=== PATIENT | male | born 1945 | race Caucasian/White ===

== ENCOUNTER 2016-10-17 19:35 | Emergency (ER) | payer OTHER ==
[~2016-10-17] VITALS: Ht 180.3 cm; Wt 95.3 kg
[~2016-10-17 19:35] MED LIST: AMLODIPINE BESY10 MG PO; ASPIR LOW81 MG PO; ASPIRIN81 M1 PO; ATENOLOL100 M1 PO; ATENOLOL25 MG PO; BP MED PO; CALCIUM ACETAT667 MG PO; CARDIZEM CD240 M1 PO; CHOLESTROL MED; CIPRO500 MG PO; CIPROFLOXACIN500 MG PO; CLOPIDOGREL75 MG PO; COUMADIN; CYMBALTA60 MG PO; ELIQUIS2.5 M1 PO; ESOMEPRAZOLE MA40 M1 PO; FLAGYL500 MG PO; HYDRALAZINE HC100 MG PO; LISINOPRIL-HYDR1 TA1 PO; LISINOPRIL20 MG PO; MELOXICAM15 MG PO; NEXIUM; NEXIUM40 MG PO; NORCO 5-325 TA1 EACH PO; PEPCID40 MG PO; PLAVIX75 M1 PO; PRANDIN0.5 MG PO; PREDNISONE20 M1 PO; PROTONIX40 MG PO; VITAMIN D1000 IU PO; XARE20MG PO; ZOCOR20 MG PO; ZOFRAN4 MG PO
[2016-10-17 19:47] VITALS: BP 181/79
[2016-10-17] MEDS ORDERED: PREDNISONE10 MG PO (20:09)
[2016-10-17] MEDS ORDERED: LEVAQUIN750 M1 PO (20:09)
== END 2016-10-17 21:13 | disposition home or self-care (01) ==
LOC: ED 19:35
DX: J20.9 Acute bronchitis, unspecified (principal); F17.200 Nicotine dependence, unspecified, uncomplicated; Z88.1 Allergy status to other antibiotic agents; Z88.6 Allergy status to analgesic agent; Z79.82 Long term (current) use of aspirin

== ENCOUNTER → 2016-11-04 | Outpatient (CLI) | payer OTHER ==
[~2016-11-04] MED LIST changes: +LEVAQUIN750 M1 PO; +PREDNISONE10 MG PO
[2016-11-04 14:44] LABS: BILIRUBIN NEGATIVE (NEGATIVE); BLOOD NEGATIVE (NEGATIVE); CLARITY CLEAR (CLEAR); COLOR YELLOW (YELLOW); GLUCOSE 2+ (NEGATIVE); KETONE TRACE (NEGATIVE); LEUKO ESTERASE NEGATIVE (NEGATIVE); NITRITE NEGATIVE (NEGATIVE); PROTEIN 1+ (NEGATIVE); SPECIFIC GRAVITY >= 1.030 (1.005-1.030); UROBILINOGEN 0.2 E.U./dl (0.2-1.0)
[2016-11-04 14:50] LABS: BASO % 0.2 % (0.0-1.0); EOS # 0.1 10*3/uL (0.0-0.4); EOS % 1.7 % (1.0-4.0); HEMATOCRIT 42.6 % (42.0-52.0); HEMOGLOBIN 13.7 g/dl (14.0-18.0); IG # 0.1 10*3/uL (0.0-0.1); LYMPH # 1.6 10*3/uL (1.3-4.4); LYMPH % 19.2 % (27.0-41.0); MEAN CELL VOLUME 89.9 fl (80.0-94.0); MEAN CORPUSCULAR HGB 28.9 pg (27.0-31.0); MEAN CORPUSCULAR HGB CONC 32.2 g/dl (33.0-37.0); MEAN PLATELET VOLUME 10.6 fl (9.6-12.3); MONO # 0.7 10*3/uL (0.1-1.0); MONO % 8.7 % (3.0-9.0); NEUT # 5.8 10*3/uL (2.3-7.9); NEUT % 69.4 % (47.0-73.0); PLATELET COUNT AUTOMATED 182 10*3/uL (130-400); RED BLOOD COUNT 4.74 10*6/uL (4.50-5.90); RED CELL DISTRI WIDTH 12.8 % (0-14.5); WHITE BLOOD COUNT 8.3 10*3/uL (4.8-10.8)
[2016-11-04 15:08] LABS: ALBUMIN 3.3 gm/dl (3.1-4.5); BUN 26 mg/dl (7-24); CARBON DIOXIDE 31 mmol/L (21-32); CHLORIDE 102 mmol/L (98-107); EST GLOM FILT AFRICAN AMERICAN > 60 ml/min; GLUCOSE 246 mg/dL (65-99); PHOSPHOROUS 2.6 mg/dL (2.5-4.9); POTASSIUM 5.2 mmol/L (3.5-5.1); SODIUM 140 mmol/L (136-145)
[2016-11-04 15:16] LABS: URINE TP/CRE RATIO 0.1 (<0.21)
[2016-11-04 15:28] LABS: EPITHELIAL CELLS 0-2; MUCOUS 1+; WBC 0-2 wbc/hpf (0-5)
== END | disposition home or self-care (01) ==
LOC: LAB 14:02
PROVIDERS: Internal Medicine Nephrology
DX: N18.3 Chronic kidney disease, stage 3 (moderate) (principal)

== ENCOUNTER → 2017-06-07 | Outpatient (CLI) | payer OTHER | END | disposition home or self-care (01) | LOC: CARD 10:27 | DX: I35.1 Nonrheumatic aortic (valve) insufficiency (principal) ==

== ENCOUNTER → 2017-09-23 | Outpatient (CLI) | payer OTHER ==
[2017-09-23 12:15] LABS: BASO % 0.3 % (0.0-1.0); EOS # 0.2 10*3/uL (0.0-0.4); EOS % 3.3 % (1.0-4.0); HEMATOCRIT 38.5 % (42.0-52.0); HEMOGLOBIN 12.6 g/dl (14.0-18.0); LYMPH # 1.6 10*3/uL (1.3-4.4); LYMPH % 25.7 % (27.0-41.0); MEAN CELL VOLUME 86.1 fl (80.0-94.0); MEAN CORPUSCULAR HGB 28.2 pg (27.0-31.0); MEAN CORPUSCULAR HGB CONC 32.7 g/dl (33.0-37.0); MEAN PLATELET VOLUME 10.4 fl (9.6-12.3); MONO # 0.6 10*3/uL (0.1-1.0); NEUT # 3.8 10*3/uL (2.3-7.9); NEUT % 61.2 % (47.0-73.0); PLATELET COUNT AUTOMATED 203 10*3/uL (130-400); RED BLOOD COUNT 4.47 10*6/uL (4.50-5.90); WHITE BLOOD COUNT 6.1 10*3/uL (4.8-10.8)
[2017-09-23 12:44] LABS: ALBUMIN 3.5 gm/dl (3.1-4.5); BUN 25 mg/dl (7-24); CHLORIDE 104 mmol/L (98-107); CREATININE 1.33 mg/dL (0.70-1.30); PHOSPHOROUS 3.1 mg/dL (2.5-4.9); POTASSIUM 4.2 mmol/L (3.5-5.1); SODIUM 139 mmol/L (136-145)
[2017-09-23 12:56] LABS: BILIRUBIN NEGATIVE (NEGATIVE); BLOOD NEGATIVE (NEGATIVE); CLARITY CLEAR (CLEAR); COLOR YELLOW (YELLOW); GLUCOSE NEGATIVE (NEGATIVE); KETONE NEGATIVE (NEGATIVE); LEUKO ESTERASE NEGATIVE (NEGATIVE); NITRITE NEGATIVE (NEGATIVE); SPECIFIC GRAVITY >= 1.030 (1.005-1.030); UROBILINOGEN 0.2 E.U./dl (0.2-1.0)
[2017-09-23 13:08] LABS: MUCOUS TRACE
[2017-09-23 13:54] LABS: PTH INTACT 53.1 pg/mL (14.0-72.0); VITAMIN D, 25-HYDROXY 21.6 ng/mL (30-100)
== END | disposition home or self-care (01) ==
LOC: LAB 11:26
PROVIDERS: Internal Medicine Nephrology
DX: N18.3 Chronic kidney disease, stage 3 (moderate) (principal)

== ENCOUNTER → 2018-01-09 | Outpatient (CLI) | payer OTHER ==
[~2018-01-09] MED LIST changes: +GLUCOPHAGE1000 MG PO
== END | disposition home or self-care (01) ==
LOC: US 12:31
DX: N18.3 Chronic kidney disease, stage 3 (moderate) (principal); Z95.828 Presence of other vascular implants and grafts

== ENCOUNTER → 2018-01-15 | Outpatient (CLI) | payer OTHER ==
[2018-01-15 09:47] LABS: BILIRUBIN NEGATIVE (NEGATIVE); BLOOD NEGATIVE (NEGATIVE); CLARITY CLEAR (CLEAR); COLOR YELLOW (YELLOW); GLUCOSE 3+ (NEGATIVE); KETONE NEGATIVE (NEGATIVE); LEUKO ESTERASE NEGATIVE (NEGATIVE); NITRITE NEGATIVE (NEGATIVE); SPECIFIC GRAVITY 1.025 (1.005-1.030); UROBILINOGEN 0.2 E.U./dl (0.2-1.0)
[2018-01-15 09:53] LABS: BASO % 0.3 % (0.0-1.0); EOS # 0.1 10*3/uL (0.0-0.4); EOS % 2.1 % (1.0-4.0); HEMATOCRIT 39.6 % (42.0-52.0); HEMOGLOBIN 12.3 g/dl (14.0-18.0); LYMPH # 1.3 10*3/uL (1.3-4.4); LYMPH % 21.4 % (27.0-41.0); MEAN CELL VOLUME 90.2 fl (80.0-94.0); MEAN CORPUSCULAR HGB CONC 31.1 g/dl (33.0-37.0); MEAN PLATELET VOLUME 10.6 fl (9.6-12.3); MONO # 0.5 10*3/uL (0.1-1.0); MONO % 8.1 % (3.0-9.0); NEUT # 4.2 10*3/uL (2.3-7.9); NEUT % 67.5 % (47.0-73.0); PLATELET COUNT AUTOMATED 195 10*3/uL (130-400); RED BLOOD COUNT 4.39 10*6/uL (4.50-5.90); WHITE BLOOD COUNT 6.2 10*3/uL (4.8-10.8)
[2018-01-15 09:58] LABS: WBC 0-2 wbc/hpf (0-5)
[2018-01-15 10:21] LABS: ALBUMIN 3.7 gm/dl (3.1-4.5); BUN 27 mg/dl (7-24); CHLORIDE 102 mmol/L (98-107); CREATININE 1.28 mg/dL (0.70-1.30); PHOSPHOROUS 3.1 mg/dL (2.5-4.9); POTASSIUM 4.6 mmol/L (3.5-5.1); SODIUM 137 mmol/L (136-145)
== END | disposition home or self-care (01) ==
LOC: LAB 08:36
PROVIDERS: Internal Medicine Nephrology
DX: N18.3 Chronic kidney disease, stage 3 (moderate) (principal); R80.9 Proteinuria, unspecified

== ENCOUNTER → 2019-01-28 | Outpatient (CLI) | payer OTHER ==
[~2019-01-28] MED LIST changes: +PRAVACHOL20 MG PO; +ROPINIROLE HYDRO1 MG PO
[2019-01-28 10:19] LABS: INTERNATIONAL NORM RATIO 1.2 (2.0-3.5)
== END | disposition home or self-care (01) ==
LOC: LAB 09:12
PROVIDERS: Internal Medicine Cardiovascular Disease
DX: Z51.81 Encounter for therapeutic drug level monitoring (principal); Z79.01 Long term (current) use of anticoagulants

== ENCOUNTER → 2019-03-25 | Outpatient (CLI) | payer OTHER ==
[2019-03-25 15:38] LABS: INTERNATIONAL NORM RATIO 1.8 (2.0-3.5)
== END | disposition home or self-care (01) ==
LOC: LAB 14:59
PROVIDERS: Internal Medicine Cardiovascular Disease
DX: Z79.01 Long term (current) use of anticoagulants (principal)

== ENCOUNTER → 2019-05-27 | Outpatient (CLI) | payer OTHER | END | disposition home or self-care (01) | LOC: LAB 09:10 → CARD 09:30 | PROVIDERS: Internal Medicine Cardiovascular Disease | DX: I48.0 Paroxysmal atrial fibrillation (principal); Z79.01 Long term (current) use of anticoagulants ==

== ENCOUNTER 2019-11-26 02:23 | Emergency (ER) | payer OTHER ==
[~2019-11-26] VITALS: Ht 187.9 cm; Wt 120.2 kg
[2019-11-26 02:49] LABS: BASO % 0.5 % (0.0-1.0); EOS # 0.2 10*3/uL (0.0-0.4); EOS % 3.2 % (1.0-4.0); HEMATOCRIT 38.7 % (42.0-52.0); LYMPH # 1.2 10*3/uL (1.3-4.4); LYMPH % 18.9 % (27.0-41.0); MEAN CELL VOLUME 85.2 fl (80.0-94.0); MEAN CORPUSCULAR HGB 27.3 pg (27.0-31.0); MEAN PLATELET VOLUME 9.6 fl (9.6-12.3); MONO # 0.7 10*3/uL (0.1-1.0); MONO % 10.7 % (3.0-9.0); NEUT # 4.3 10*3/uL (2.3-7.9); NEUT % 66.2 % (47.0-73.0); PLATELET COUNT AUTOMATED 253 10*3/uL (130-400); RED BLOOD COUNT 4.54 10*6/uL (4.50-5.90); RED CELL DISTRI WIDTH 12.7 % (0-14.5); WHITE BLOOD COUNT 6.5 10*3/uL (4.8-10.8)
[2019-11-26 03:10] LABS: ALBUMIN 3.5 gm/dl (3.1-4.5); CREATININE 1.42 mg/dL (0.70-1.30); POTASSIUM 4.7 mmol/L (3.5-5.1); TOTAL PROTEIN 7.7 gm/dL (6.4-8.2)
[2019-11-26 03:13] LABS: TROPONIN I 2.46 ng/ml (<0.045)
[2019-11-26 05:10] VITALS: BP 185/96
== END 2019-11-26 05:15 | disposition short-term general hospital (02) ==
LOC: ED 02:23
PROVIDERS: Emergency Medicine
DX: I63.9 Cerebral infarction, unspecified (principal); I10 Essential (primary) hypertension; K21.9 Gastro-esophageal reflux disease without esophagitis; E11.9 Type 2 diabetes mellitus without complications; E78.5 Hyperlipidemia, unspecified; E78.00 Pure hypercholesterolemia, unspecified; M19.90 Unspecified osteoarthritis, unspecified site; F32.9 Major depressive disorder, single episode, unspecified; Z88.8 Allergy status to other drugs, medicaments and biological substances; Z79.899 Other long term (current) drug therapy; Z79.84 Long term (current) use of oral hypoglycemic drugs; Z79.82 Long term (current) use of aspirin; Z87.891 Personal history of nicotine dependence

== ENCOUNTER 2020-01-13 10:33 | Inpatient (IN) | payer OTHER ==
[~2020-01-13] VITALS: Ht 180.3 cm; Wt 89.8 kg
[2020-01-13 10:45] VITALS: BP 116/67
[2020-01-13 11:25] LABS: BASO % 0.4 % (0.0-1.0); EOS # 0.1 10*3/uL (0.0-0.4); EOS % 1.6 % (1.0-4.0); LYMPH # 0.6 10*3/uL (1.3-4.4); LYMPH % 12.9 % (27.0-41.0); MEAN CELL VOLUME 84.7 fl (80.0-94.0); MEAN CORPUSCULAR HGB 26.1 pg (27.0-31.0); MEAN CORPUSCULAR HGB CONC 30.8 g/dl (33.0-37.0); MEAN PLATELET VOLUME 9.2 fl (9.6-12.3); MONO # 0.6 10*3/uL (0.1-1.0); NEUT # 3.5 10*3/uL (2.3-7.9); NEUT % 72.3 % (47.0-73.0); PLATELET COUNT AUTOMATED 212 10*3/uL (130-400); RED BLOOD COUNT 4.25 10*6/uL (4.50-5.90); RED CELL DISTRI WIDTH 14.6 % (0-14.5); WHITE BLOOD COUNT 4.9 10*3/uL (4.8-10.8)
[2020-01-13 11:43] LABS: ALBUMIN 2.9 gm/dl (3.1-4.5); ALKALINE PHOSPHATASE 73 U/L (45-117); BUN 23 mg/dl (7-24); CHLORIDE 104 mmol/L (98-107); LIPASE 44 U/L (73-393); SGOT/AST 20 IU/L (3-35); SGPT/ALT 12 U/L (12-78); SODIUM 135 mmol/L (136-145); TOTAL PROTEIN 7.7 gm/dL (6.4-8.2)
[2020-01-13 11:52] LABS: TROPONIN I 0.209 ng/ml (<0.045)
[2020-01-13 12:12] LABS: ACT PARTIAL THROMBO TIME 27.7 SECONDS (20.0-32.1); INTERNATIONAL NORM RATIO 1.1 (2.0-3.5)
[2020-01-13 13:38] VITALS: BP 117/69
--- NOTE | 2020-01-13 13:38 | NUR ---
COVID TEST DONE, RIGHT NARES
--- NOTE | 2020-01-13 13:39 | NUR ---
SECOND EKG COMPLETED
--- NOTE | 2020-01-13 14:02 | NUR ---
CONSULT CALLED TO DR FARLEY ANSWRING [facility]
--- NOTE | 2020-01-13 14:06 | NUR ---
SPOKE WITH DR EASTON REGARDING NEW CONSULT. NO NEW ORDERS AT THIS TIME
[2020-01-13] MEDS ORDERED: ELIQUIS5 M1 PO (14:29)
[2020-01-13] MEDS ORDERED: HYDRALAZINE HYD50 MG PO (14:29)
[2020-01-13] MEDS ORDERED: IMDUR SA60 M1 PO (14:29)
[2020-01-13] MEDS ORDERED: IRON325 M1 PO (14:29)
[2020-01-13] MEDS ORDERED: ALBUTEROL2.5 MG/0.5 INH (14:30)
--- NOTE | 2020-01-13 14:30 | NUR ---
MED REC UP TO DATE WITH BHAVESHNGHIA BURDEN
--- NOTE | 2020-01-13 14:31 | NUR ---
ATTEPTING TO REACH DR GARCIA WITH CRITICAL TROPONIN RESULT
--- NOTE | 2020-01-13 14:42 | NUR ---
DR GARCIA CALLED BACK. GAVE HIM CRITICAL TROPONIN RESULTS . NO NEW ORDERS AT THIS TIME
[2020-01-13 15:00] VITALS: BP 122/84
--- NOTE | 2020-01-13 15:00 | NUR ---
The assessment has been completed. SARIKA NAYLOR Time: 1500 A 74 year old MALE admitted to under services of EPI GUTIÉRREZ DO. Pt. arrived via ambulatory from ER. Chief complaint: SENT FROM HOME SPEECH THERAPIST FOR LOW POX AND ELEVATED HEART RATE. C/O SOB X2 DAYS WITH INTERMITTENT CHEST PAIN. SARIKA NAYLOR
--- NOTE | 2020-01-13 15:30 | NUR ---
INCREASED O2 TO 6L POST ABG, SATS ON PULSE OX INCREASED TO 94%. RN IS AWARE.
--- NOTE | 2020-01-13 15:45 | NUR ---
MESSAGE LEFT WITH ANSWERING SERVICE REGARDING CARDIOLOGY CONSULT
[2020-01-13 15:46] LABS: ABG BASE EXCESS 1.5 mmol/L (-2.0-2.0); ARTERIAL BLOOD GAS PH 7.435 (7.35-7.45)
--- NOTE | 2020-01-13 15:55 | NUR ---
PER DR RAMIREZ TO D/C FLUIDS AT THIS TIME.
[2020-01-13 16:00] VITALS: BP 141/70
--- NOTE | 2020-01-13 17:33 | NUR ---
DR GARCIA NOTIFIED OF TROPONIN 0.283
[2020-01-13 20:52] VITALS: BP 117/77
--- NOTE | 2020-01-13 21:50 | NUR ---
PATIENT RESTING QUIETLY IN BED. O2 6L NC. PULSE OX 98%. VITAL SIGNS STABLE. GAVE PATIENT WIFES NUMBER PER REQUEST AND WENT OVER HOW TO DIAL OUT TO CALL HER. ALSO GAVE PATIENT BAG OF BELONGINGS THAT HIS DROPPED OFF. PATIENT HAS NO COMPLAINTS AT THIS TIME. WILL CONTINUE TO MONITOR.
[2020-01-14 00:11] VITALS: BP 111/67
[2020-01-14 06:26] LABS: BASO % 0.2 % (0.0-1.0); EOS # 0.1 10*3/uL (0.0-0.4); EOS % 2.2 % (1.0-4.0); HEMATOCRIT 36.5 % (42.0-52.0); LYMPH # 0.8 10*3/uL (1.3-4.4); LYMPH % 18.5 % (27.0-41.0); MEAN CELL VOLUME 85.5 fl (80.0-94.0); MEAN CORPUSCULAR HGB 26.2 pg (27.0-31.0); MEAN CORPUSCULAR HGB CONC 30.7 g/dl (33.0-37.0); MEAN PLATELET VOLUME 9.6 fl (9.6-12.3); MONO # 0.6 10*3/uL (0.1-1.0); MONO % 14.4 % (3.0-9.0); NEUT # 2.6 10*3/uL (2.3-7.9); PLATELET COUNT AUTOMATED 235 10*3/uL (130-400); RED BLOOD COUNT 4.27 10*6/uL (4.50-5.90); RED CELL DISTRI WIDTH 14.6 % (0-14.5); WHITE BLOOD COUNT 4.1 10*3/uL (4.8-10.8)
[2020-01-14 06:35] LABS: INTERNATIONAL NORM RATIO 1.1 (2.0-3.5)
[2020-01-14 06:46] LABS: ALBUMIN 2.8 gm/dl (3.1-4.5); BUN 20 mg/dl (7-24); CHLORIDE 102 mmol/L (98-107); POTASSIUM 3.8 mmol/L (3.5-5.1); SODIUM 135 mmol/L (136-145)
[2020-01-14 06:55] LABS: ALKALINE PHOSPHATASE 78 U/L (45-117); CHOLESTEROL 222 mg/dL (<200); CPK 32 U/L (39-308); CREATININE 1.26 mg/dL (0.70-1.30); HDL CHOLESTEROL 36 mg/dl (40-60); LDL CHOLESTEROL 132 mg/dL (9-159); SGOT/AST 19 IU/L (3-35); SGPT/ALT 11 U/L (12-78); TOTAL PROTEIN 7.6 gm/dL (6.4-8.2); TRIGLYCERIDES 269 mg/dl (<150); VLDL CHOLESTEROL 54 mg/dL (6-40)
[2020-01-14 08:00] VITALS: BP 133/89
--- NOTE | 2020-01-14 08:00 | NUR ---
PT RESTING IN BED. VOICES NO CONCERNS AT THIS TIME. RESPS EASY AND NON LABORED. NO S/S OF DISTRESS. VSS- SPO2 FOUND TO BE IN THE 80'S; TITRATED OXYGEN TO 7L AT THIS TIME. WHITE BOARD UPDATED. POC DISCUSSED W PT. I/E WHEEZES NOTED. PT DENIES SOB/CP/P. WILL CONTINUE TO MONITOR.
--- NOTE | 2020-01-14 09:00 | NUR ---
Half Sole Fitter in to talk to patient. Patient states lives at home with . There are 7 steps in the home. Physician: [place] [facility]: [facility] Patient's level of ADLs: MINIMAL ASSIST Patient has working utilities: all working DME: walker Follow-up physician's appointment after d/c: will be made by [facility] nurse director upon discharge Does patient want to access PORTAL?: no Discharge plan discussed with patient's , he lives at home with her, she stated he recently was in a [facility] with a CVA. he uses a walker for ambulation. stated they have steps in their home to the upstairs but patient doesn't have to use them, his bedroom is on the first floor. and also a bathroom, she stated he requires minimal assistance for adls. he has [facility] health currently that was set up per [facility], states patient will return home with her when discharged and she would like his [facility] continued case management will send resume order to [facility]. ALLAN BOOGIE
[2020-01-14 11:01] LABS: ABG BASE EXCESS 1.9 mmol/L (-2.0-2.0); ARTERIAL BLOOD GAS PH 7.422 (7.35-7.45)
--- NOTE | 2020-01-14 11:30 | NUR ---
BS 201. PT REFUSED INSULIN COVERAGE AT THIS TIME
--- NOTE | 2020-01-14 14:30 | NUR ---
PT. PLACED ON HIGH FLOW NC AT 10 LITERS, RN AWARE.
--- NOTE | 2020-01-14 16:59 | NUR ---
PT RESTING IN ROOM. RESPS EASY AND NON LABORED. VSS. SPO2 93% ON 10L HFNC. WHEEZES NOTED. DENIES SOB. WILL CONTINUE TO MONITOR. CALL LIGHT WITHIN REACH. A/O X3.
[2020-01-14 20:00] VITALS: BP 161/79
--- NOTE | 2020-01-14 23:30 | NUR ---
PATIENT SITTING ON SIDE OF BED. 10L HIGH FLOW NASAL CANNULA. PULSE OX IS 97%. NO COMPLAINTS AT THIS TIME. RESPIRATIONS ARE EASY, REGULAR, NONLABORED. NO SIGNS OR SYMPTOMS OF DISCOMFORT OR DISTRESS NOTED. PATIENT STATED NOT IN PAIN AND NOT SHORT OF BREATH. WILL CONTINUE TO MONITOR.
[2020-01-15] VITALS: BP 152/80
[2020-01-15 07:20] LABS: HEMATOCRIT 36.2 % (42.0-52.0); LYMPH # 0.5 10*3/uL (1.3-4.4); LYMPH % 11.7 % (27.0-41.0); MEAN CORPUSCULAR HGB 26.3 pg (27.0-31.0); MEAN CORPUSCULAR HGB CONC 30.9 g/dl (33.0-37.0); MEAN PLATELET VOLUME 9.5 fl (9.6-12.3); MONO # 0.2 10*3/uL (0.1-1.0); MONO % 4.4 % (3.0-9.0); NEUT # 3.2 10*3/uL (2.3-7.9); NEUT % 83.4 % (47.0-73.0); PLATELET COUNT AUTOMATED 242 10*3/uL (130-400); RED BLOOD COUNT 4.26 10*6/uL (4.50-5.90); RED CELL DISTRI WIDTH 14.3 % (0-14.5); WHITE BLOOD COUNT 3.8 10*3/uL (4.8-10.8)
[2020-01-15 07:21] LABS: HEMATOCRIT 35.9 % (42.0-52.0); LYMPH # 0.5 10*3/uL (1.3-4.4); LYMPH % 12.2 % (27.0-41.0); MEAN CELL VOLUME 83.9 fl (80.0-94.0); MEAN CORPUSCULAR HGB 25.9 pg (27.0-31.0); MEAN CORPUSCULAR HGB CONC 30.9 g/dl (33.0-37.0); MEAN PLATELET VOLUME 9.3 fl (9.6-12.3); MONO # 0.2 10*3/uL (0.1-1.0); MONO % 4.5 % (3.0-9.0); NEUT # 3.1 10*3/uL (2.3-7.9); NEUT % 82.5 % (47.0-73.0); PLATELET COUNT AUTOMATED 255 10*3/uL (130-400); RED BLOOD COUNT 4.28 10*6/uL (4.50-5.90); RED CELL DISTRI WIDTH 14.2 % (0-14.5); WHITE BLOOD COUNT 3.8 10*3/uL (4.8-10.8)
--- NOTE | 2020-01-15 07:44 | NUR ---
PT NEGATIVE FOR COVID-19
[2020-01-15 07:54] LABS: ALBUMIN 2.9 gm/dl (3.1-4.5); ALKALINE PHOSPHATASE 67 U/L (45-117); BUN 25 mg/dl (7-24); CHLORIDE 103 mmol/L (98-107); CPK 35 U/L (39-308); CREATININE 1.33 mg/dL (0.70-1.30); POTASSIUM 3.9 mmol/L (3.5-5.1); SGOT/AST 13 IU/L (3-35); SGPT/ALT 12 U/L (12-78); SODIUM 135 mmol/L (136-145); TOTAL PROTEIN 7.9 gm/dL (6.4-8.2)
[2020-01-15 08:00] VITALS: BP 138/76
--- NOTE | 2020-01-15 08:00 | NUR ---
PT RESTING IN BED.VOICES NO CONCERNS AT THIS TIME. RESPS EASY AND NON LABORED. NO S/S OF DISTRESS NOTED. VSS. WHITE BOARD UPDATED. POC DISCUSSED W PT. CALL LIGHT WITHIN REACH. A/O X3. WHEEZES NOTED. 10L HFNC-93%. SOB W EXERTION. WILL CONTINUE TO MONITOR.
[2020-01-15 08:01] LABS: TROPONIN I 0.123 ng/ml (<0.045)
--- NOTE | 2020-01-15 08:02 | NUR ---
DR RODRIGUEZ NOTIFIED OF CRITICAL TROPONIN OF 0.123
--- NOTE | 2020-01-15 09:49 | NUR ---
DR PHILIP INTO SEE PT
[2020-01-15 11:02] LABS: ABG BASE EXCESS 0.6 mmol/L (-2.0-2.0); ARTERIAL BLOOD GAS PH 7.433 (7.35-7.45)
--- NOTE | 2020-01-15 11:38 | NUR ---
PT TAKEN OFF FLOOR TO CT
[2020-01-15 12:00] VITALS: BP 138/76
--- NOTE | 2020-01-15 13:19 | NUR ---
INFORMED DR EASTON OF CT RESULTS. STATES HE WANTS PT MOVED TO ROOM 420.
--- NOTE | 2020-01-15 14:47 | NUR ---
PT SITTING UP IN CHAIR IN ROOM. RESPS EASY AND NON LABORED. NO S/S OF DISTRESS NOTED. 10L HFNC INTACT. SPO2 >93%. VOICES NO CONCERNS AT THIS TIME. WILL CONTINUE TO MONITOR.
[2020-01-15 16:00] VITALS: BP 138/76
--- NOTE | 2020-01-15 18:00 | NUR ---
PT EATING DINNER. VOICES NO CONCERNS. RESPS EASY AND NON LABORED. NO S/S OF DISTRESS. 10L HFNC INTACT-SPO2 94%. PT DENIES SOB @REST. NO CHEST DISCOMFORT. VSS. CALL LIGHT WITHIN REACH.
[2020-01-15 20:00] VITALS: BP 148/69
[2020-01-16] VITALS: BP 136/68
--- NOTE | 2020-01-16 00:04 | NUR ---
ASSISTED PATIENT WITH PROPER USE OF INHALER AT THIS TIME. PATIENT DID 4 PUFF PER ORDER. 97% ON 10L HIGH FLOW CANNULA. CALL LIGHT WITHIN REACH, WILL MONITOR
--- NOTE | 2020-01-16 02:41 | NUR ---
24 HR chart check completed.
[2020-01-16 07:03] LABS: HEMATOCRIT 32.4 % (42.0-52.0); LYMPH # 0.5 10*3/uL (1.3-4.4); LYMPH % 8.1 % (27.0-41.0); MEAN CELL VOLUME 85.7 fl (80.0-94.0); MEAN CORPUSCULAR HGB 26.2 pg (27.0-31.0); MEAN CORPUSCULAR HGB CONC 30.6 g/dl (33.0-37.0); MEAN PLATELET VOLUME 9.5 fl (9.6-12.3); MONO # 0.4 10*3/uL (0.1-1.0); MONO % 6.5 % (3.0-9.0); NEUT # 4.9 10*3/uL (2.3-7.9); NEUT % 84.5 % (47.0-73.0); PLATELET COUNT AUTOMATED 241 10*3/uL (130-400); RED BLOOD COUNT 3.78 10*6/uL (4.50-5.90); RED CELL DISTRI WIDTH 14.3 % (0-14.5); WHITE BLOOD COUNT 5.8 10*3/uL (4.8-10.8)
[2020-01-16 07:25] LABS: ALBUMIN 2.7 gm/dl (3.1-4.5); ALKALINE PHOSPHATASE 68 U/L (45-117); CHLORIDE 104 mmol/L (98-107); CPK 33 U/L (39-308); CREATININE 1.36 mg/dL (0.70-1.30); LDH 223 U/L (87-241); POTASSIUM 4.2 mmol/L (3.5-5.1); SGOT/AST 15 IU/L (3-35); SGPT/ALT 15 U/L (12-78); SODIUM 136 mmol/L (136-145)
[2020-01-16 07:34] LABS: BUN 38 mg/dl (7-24)
[2020-01-16 08:00] VITALS: BP 112/74
[2020-01-16 08:26] LABS: ARTERIAL BLOOD GAS PH 7.391 (7.35-7.45)
--- NOTE | 2020-01-16 09:29 | NUR ---
Dr. Foley in and reviewed pt condition updated on labs and vitals. States to decreased pt o2 to 8l and abgs in 2 hours past.
--- NOTE | 2020-01-16 09:34 | NUR ---
case management spoke to patient's regarding discharge plan. educated her on a short term usp and discussed with her patient discharging to a SNF upon discharge from the hospital, stated she did not want patient going to a SNF she was able to care for him at home with [facility], she stated patient has home oxygen at 5 liters and could have it increased to 10 liters if needed. case management will follow for any other home needs
[2020-01-16 12:00] VITALS: BP 123/58
[2020-01-16 12:08] LABS: ABG BASE EXCESS 1.5 mmol/L (-2.0-2.0); ARTERIAL BLOOD GAS PH 7.399 (7.35-7.45)
--- NOTE | 2020-01-16 12:45 | NUR ---
Notified Dr. Foley of ABG results. States to stick with 8l for now on pt.
[2020-01-16 16:51] VITALS: BP 128/57
--- NOTE | 2020-01-16 18:44 | NUR ---
Pt states he would like some antibiotic ointment for his nose. States he spoke with one of the physicans he saw today and he thought they were going to order it. States he has a sore spot in his nose. Notified Dr. Baker.
[2020-01-16 20:00] VITALS: BP 127/52
[2020-01-16 23:59] VITALS: BP 144/63
[2020-01-17 04:00] VITALS: BP 121/71
[2020-01-17 06:16] LABS: HEMATOCRIT 32.7 % (42.0-52.0); LYMPH # 0.4 10*3/uL (1.3-4.4); LYMPH % 8.9 % (27.0-41.0); MEAN CELL VOLUME 86.1 fl (80.0-94.0); MEAN CORPUSCULAR HGB 26.3 pg (27.0-31.0); MEAN CORPUSCULAR HGB CONC 30.6 g/dl (33.0-37.0); MEAN PLATELET VOLUME 9.9 fl (9.6-12.3); MONO # 0.1 10*3/uL (0.1-1.0); MONO % 2.8 % (3.0-9.0); NEUT # 4.3 10*3/uL (2.3-7.9); NEUT % 87.3 % (47.0-73.0); PLATELET COUNT AUTOMATED 242 10*3/uL (130-400); RED CELL DISTRI WIDTH 14.5 % (0-14.5)
[2020-01-17 06:39] LABS: ALBUMIN 2.7 gm/dl (3.1-4.5); ALKALINE PHOSPHATASE 63 U/L (45-117); BUN 44 mg/dl (7-24); CHLORIDE 103 mmol/L (98-107); CREATININE 1.31 mg/dL (0.70-1.30); POTASSIUM 4.9 mmol/L (3.5-5.1); SGOT/AST 16 IU/L (3-35); SGPT/ALT 15 U/L (12-78); SODIUM 135 mmol/L (136-145); TOTAL PROTEIN 6.9 gm/dL (6.4-8.2)
[2020-01-17 08:45] LABS: ABG BASE EXCESS -0.3 mmol/L (-2.0-2.0); ARTERIAL BLOOD GAS PH 7.377 (7.35-7.45)
--- NOTE | 2020-01-17 09:00 | NUR ---
per patient's , he will return home when discharge, patient not stable for discharge at this time, case management will follow
[2020-01-17 12:00] VITALS: BP 115/51
--- NOTE | 2020-01-17 12:46 | NUR ---
Pt called in states that her told her he was not having to use thickener in his liquids. states that pt was supposed to use thickener to nectar consistancy due to a recent stroke in October. States that he had the stroke in October and was in the hospital and did not come home until December. States that he was supposed to use the thickener at home as well but he did not. States she spoke with pt speech therapist and they stated pt probably needs a repeat MBS to eval ability to swallow. also wondering if not using thickener at home may have caused pneumonia. I notified her that I would tell the physican. Dr. Morley resident with ID called durint this conversation and I notified her of 's concerns and statements as recorded above.
--- NOTE | 2020-01-17 14:35 | NUR ---
Spoke with Dr. Foley. States that pt is to remain in isolation as prior. States that due to lung CT he cannot in good conscience dc isolation since it is highly suspicious. States a negative swab means covid was not isolated in the nose but it can still be in the lungs. States pt is to Remain is isolation until discharge.
--- NOTE | 2020-01-17 14:38 | NUR ---
Spoke with Dr. Baker regarding decision from Dr. Foley to keep pt in isolation due to CT scan. Also notified Dr. Baker of pt wifes statements earlier regarding hx of CVA with nectar thickened liquids which pt did not continue at home.
[2020-01-17 16:00] VITALS: BP 133/63
[2020-01-17 20:00] VITALS: BP 132/56
[2020-01-18] VITALS: BP 128/65
[2020-01-18 08:00] VITALS: BP 135/63
[2020-01-18 08:07] LABS: ABG BASE EXCESS 1.7 mmol/L (-2.0-2.0); ARTERIAL BLOOD GAS PH 7.407 (7.35-7.45)
[2020-01-18 08:12] LABS: BASO % 0.2 % (0.0-1.0); HEMATOCRIT 31.7 % (42.0-52.0); LYMPH # 0.5 10*3/uL (1.3-4.4); LYMPH % 8.4 % (27.0-41.0); MEAN CELL VOLUME 86.1 fl (80.0-94.0); MEAN CORPUSCULAR HGB 26.4 pg (27.0-31.0); MEAN CORPUSCULAR HGB CONC 30.6 g/dl (33.0-37.0); MEAN PLATELET VOLUME 10.3 fl (9.6-12.3); MONO # 0.3 10*3/uL (0.1-1.0); MONO % 5.4 % (3.0-9.0); NEUT # 4.7 10*3/uL (2.3-7.9); NEUT % 84.4 % (47.0-73.0); PLATELET COUNT AUTOMATED 252 10*3/uL (130-400); RED BLOOD COUNT 3.68 10*6/uL (4.50-5.90); RED CELL DISTRI WIDTH 14.4 % (0-14.5); WHITE BLOOD COUNT 5.6 10*3/uL (4.8-10.8)
[2020-01-18 08:23] LABS: ALBUMIN 2.6 gm/dl (3.1-4.5); ALKALINE PHOSPHATASE 60 U/L (45-117); BUN 38 mg/dl (7-24); CHLORIDE 105 mmol/L (98-107); CREATININE 1.19 mg/dL (0.70-1.30); SGOT/AST 10 IU/L (3-35); SGPT/ALT 16 U/L (12-78); SODIUM 137 mmol/L (136-145); TOTAL PROTEIN 6.3 gm/dL (6.4-8.2)
[2020-01-18 11:52] LABS: ABG BASE EXCESS 2.6 mmol/L (-2.0-2.0); ARTERIAL BLOOD GAS PH 7.431 (7.35-7.45)
[2020-01-18 12:00] VITALS: BP 112/52
[2020-01-18 20:00] VITALS: BP 108/68; BP 124/63
--- NOTE | 2020-01-18 20:00 | NUR ---
IN TO ASSESS PATIENT. PATIENT UP AMBULATING IN ROOM. NO DISTRESS NOTED. PATIENT ON 6L HFNC TOLERATING WELL. STATES HE FEELS MUCH BETTER. PATIENT HAS NO COMPLAINTS AT THIS TIME. CALL LIGHT WITHIN REACH, WILL MONITOR
--- NOTE | 2020-01-18 22:34 | NUR ---
24 HR chart check completed.
[2020-01-19] VITALS: BP 130/61
--- NOTE | 2020-01-19 02:05 | NUR ---
PATIENT SLEEPING. NO DIDSTRESS NOTED PULSE OX 98% ON CONTINUOUS MONITOR. CALL LIGHT WITHIN REACH
[2020-01-19 06:03] LABS: BASO % 0.2 % (0.0-1.0); HEMATOCRIT 33.2 % (42.0-52.0); LYMPH # 0.6 10*3/uL (1.3-4.4); LYMPH % 10.1 % (27.0-41.0); MEAN CELL VOLUME 85.6 fl (80.0-94.0); MEAN CORPUSCULAR HGB 26.3 pg (27.0-31.0); MEAN CORPUSCULAR HGB CONC 30.7 g/dl (33.0-37.0); MEAN PLATELET VOLUME 10.2 fl (9.6-12.3); MONO # 0.3 10*3/uL (0.1-1.0); MONO % 5.3 % (3.0-9.0); NEUT # 5.1 10*3/uL (2.3-7.9); NEUT % 82.3 % (47.0-73.0); PLATELET COUNT AUTOMATED 262 10*3/uL (130-400); RED BLOOD COUNT 3.88 10*6/uL (4.50-5.90); RED CELL DISTRI WIDTH 14.6 % (0-14.5); WHITE BLOOD COUNT 6.2 10*3/uL (4.8-10.8)
[2020-01-19 06:10] LABS: ALBUMIN 2.6 gm/dl (3.1-4.5); ALKALINE PHOSPHATASE 57 U/L (45-117); BUN 36 mg/dl (7-24); CHLORIDE 102 mmol/L (98-107); CREATININE 1.23 mg/dL (0.70-1.30); LDH 205 U/L (87-241); POTASSIUM 4.8 mmol/L (3.5-5.1); SGOT/AST 15 IU/L (3-35); SGPT/ALT 18 U/L (12-78); SODIUM 134 mmol/L (136-145); TOTAL PROTEIN 6.3 gm/dL (6.4-8.2)
[2020-01-19 08:00] VITALS: BP 144/70
[2020-01-19 08:31] LABS: ABG BASE EXCESS 2.6 mmol/L (-2.0-2.0); ARTERIAL BLOOD GAS PH 7.425 (7.35-7.45)
[2020-01-19 12:00] VITALS: BP 130/66
--- NOTE | 2020-01-19 14:15 | NUR ---
DROPPED TO 4LNC HF PER ORDERS. POX NOW 95%. RT ARI INFORMED OF ORDERS FOR REPEAT ABG IN 1-2HRS FROM THIS TIME.
--- NOTE | 2020-01-19 15:30 | NUR ---
PATIENT AMBULATED IN ROOM WITH 4 L/M CANNULA. PULSE OX 92%-93% WITH AMBULATION. PATIENT APPEARED TO TOLERATE WELL.
[2020-01-19 15:48] LABS: ABG BASE EXCESS 2.1 mmol/L (-2.0-2.0); ARTERIAL BLOOD GAS PH 7.414 (7.35-7.45)
[2020-01-19 16:00] VITALS: BP 121/57
[2020-01-19 20:00] VITALS: BP 129/57
--- NOTE | 2020-01-19 20:45 | NUR ---
IN TO ASSESS PATIENT. PATIENT ON 4L HFNC AND TOLERATING WELL. STATES HE FEELS PRETTY GOOD AND CAN'T WAIT TO GO HOME. BREATHING IS EASY AND REGULAR. NO DISTRESS. PATIENT DENIES ANY NEEDS ATT HIS TIME. CALL LIGHT WITHIN REACH, WILL MONITOR
[2020-01-20] VITALS: BP 134/67
--- NOTE | 2020-01-20 01:00 | NUR ---
PATIENT CONTINUES TO SLEEP. NO DISTRESS NOTED. PULSE OX 97% ON 4L HFNC. CALL LIGHT WITHIN REACH, WILL MONITOR
--- NOTE | 2020-01-20 04:00 | NUR ---
PATIENT CONTINUES TO SLEEP. 4LHFNC INTACT. PULSE OX 95%. CALL LIGHT WITHIN REACH, WILL MONITOR
[2020-01-20 05:14] LABS: ACT PARTIAL THROMBO TIME 30.7 SECONDS (20.0-32.1)
[2020-01-20 05:17] LABS: ALBUMIN 2.6 gm/dl (3.1-4.5); ALKALINE PHOSPHATASE 53 U/L (45-117); BUN 39 mg/dl (7-24); CHLORIDE 103 mmol/L (98-107); CREATININE 1.23 mg/dL (0.70-1.30); LDH 176 U/L (87-241); POTASSIUM 4.7 mmol/L (3.5-5.1); SGOT/AST 15 IU/L (3-35); SGPT/ALT 21 U/L (12-78); SODIUM 135 mmol/L (136-145); TOTAL PROTEIN 6.2 gm/dL (6.4-8.2)
[2020-01-20 06:23] LABS: HEMATOCRIT 33.3 % (42.0-52.0); MEAN CELL VOLUME 84.7 fl (80.0-94.0); MEAN CORPUSCULAR HGB CONC 30.6 g/dl (33.0-37.0); MEAN PLATELET VOLUME 10.3 fl (9.6-12.3); PLATELET COUNT AUTOMATED 254 10*3/uL (130-400); RED BLOOD COUNT 3.93 10*6/uL (4.50-5.90); RED CELL DISTRI WIDTH 14.5 % (0-14.5); WHITE BLOOD COUNT 6.8 10*3/uL (4.8-10.8)
--- NOTE | 2020-01-20 06:27 | NUR ---
BLOOD SUGAR TAKEN FROM BMP
[2020-01-20 07:08] LABS: OVALOCYTES FEW; PLATELET SUFFICIENCY NORMAL (NORMAL); TOTAL CELLS COUNTED 100 #CELLS
[2020-01-20 08:00] VITALS: BP 125/56
[2020-01-20 09:05] LABS: ABG BASE EXCESS 3.3 mmol/L (-2.0-2.0); ARTERIAL BLOOD GAS PH 7.421 (7.35-7.45)
--- NOTE | 2020-01-20 09:35 | NUR ---
PER , PT IS OK FOR DISCHARGE. WANTS PT TO SELF QUARANTINE AND DO A REPEAT COVID TEST IN 2 WEEKS AND THEN FOLLOW UP WITH HIM AT HIS OFFICE. ALSO WANTS PT TO BE DISCHARGED ON PREDNISONE TAPER FOR HIS COPD.
--- NOTE | 2020-01-20 10:30 | NUR ---
case management talks with patient's , she states he will return home when discharged and [facility], case management will follow
[2020-01-20 12:00] VITALS: BP 116/49
--- NOTE | 2020-01-20 14:28 | NUR ---
case management contacted [facility], notified they patient is being discharged to home today, faxed discharge list to them
[2020-01-20] MEDS ORDERED: LASIX40 MG PO (15:16)
[2020-01-20] MEDS ORDERED: PREDNISONE10 MG PO (15:16)
[2020-01-20] MEDS ORDERED: METOPROLOL SUCC25 M2 PO (15:16)
[2020-01-20] MEDS ORDERED: ATORVASTATIN CA40 M1 PO (15:16)
--- NOTE | 2020-01-20 15:44 | NUR ---
Discharge instructions reviewed with patient/family. Patient receptive and verbalizes understanding. Follow-up care arranged. Written instructions given to patient/family. CARLA TALBOT
--- NOTE | 2020-01-20 17:16 | NUR ---
12:30 PT ASSESSED FOR HOME O2. PT CURRENTLY HAS HOME O2 AT 3 L NC. PT AMBULATED IN ROOM WITH 3 L NC. SPO2 DROPPED TO 88%. PT AMBULATED ON 4 L NC. SPO2 MAINTAINED AT 91% PT REQUIRES 4 L NC WITH AMBULATION.
== END 2020-01-20 15:44 | disposition home health service (06) | DRG 871 ==
LOC: ED 10:33 → 4E 13:10 → EDHOLD 13:10 → 4E 13:25
PROVIDERS: Emergency Medicine; Internal Medicine; Internal Medicine Critical Care Medicine; Student in an Organized Health Care Education/Training Program; ADMIT Student in an Organized Health Care Education/Training Program
DX: A41.9 Sepsis, unspecified organism (principal); I21.A1 Myocardial infarction type 2; J96.21 Acute and chronic respiratory failure with hypoxia; J12.89 Other viral pneumonia; E87.1 Hypo-osmolality and hyponatremia; E44.0 Moderate protein-calorie malnutrition; J44.0 Chronic obstructive pulmonary disease with (acute) lower respiratory infection; J44.1 Chronic obstructive pulmonary disease with (acute) exacerbation; D68.59 Other primary thrombophilia; I24.9 Acute ischemic heart disease, unspecified; R65.20 Severe sepsis without septic shock; Z20.828 Contact with and (suspected) exposure to other viral communicable diseases; Z99.81 Dependence on supplemental oxygen; R79.89 Other specified abnormal findings of blood chemistry; L29.9 Pruritus, unspecified; K21.9 Gastro-esophageal reflux disease without esophagitis; E55.9 Vitamin D deficiency, unspecified; E11.51 Type 2 diabetes mellitus with diabetic peripheral angiopathy without gangrene; E11.22 Type 2 diabetes mellitus with diabetic chronic kidney disease; N18.3 Chronic kidney disease, stage 3 (moderate); M19.90 Unspecified osteoarthritis, unspecified site; E11.65 Type 2 diabetes mellitus with hyperglycemia; T38.0X5A Adverse effect of glucocorticoids and synthetic analogues, initial encounter; E78.5 Hyperlipidemia, unspecified; I12.9 Hypertensive chronic kidney disease with stage 1 through stage 4 chronic kidney disease, or unspecified chronic kidney disease; Z79.82 Long term (current) use of aspirin; Y92.89 Other specified places as the place of occurrence of the external cause; Z88.1 Allergy status to other antibiotic agents; Z88.5 Allergy status to narcotic agent; Z68.27 Body mass index [BMI] 27.0-27.9, adult

== ENCOUNTER → 2020-12-31 | Outpatient (CLI) | payer OTHER ==
[~2020-12-31] MED LIST changes: +ALBUTEROL2.5 MG/0.5 INH; +ATORVASTATIN CA40 M1 PO; +ELIQUIS5 M1 PO; +HYDRALAZINE HYD50 MG PO; +IMDUR SA60 M1 PO; +IRON325 M1 PO; +LASIX40 MG PO; +METOPROLOL SUCC25 M2 PO
== END | disposition home or self-care (01) ==
LOC: RAD 10:47
PROVIDERS: ATTEND Internal Medicine
DX: M17.0 Bilateral primary osteoarthritis of knee (principal)

== ENCOUNTER → 2021-05-14 | Outpatient (CLI) | payer OTHER | END | disposition home or self-care (01) | LOC: COVID19 15:51 | PROVIDERS: ATTEND Podiatrist Foot & Ankle Surgery | DX: Z11.52 Encounter for screening for COVID-19 (principal) ==

== ENCOUNTER → 2023-05-10 | Outpatient (CLI) | payer OTHER | END | disposition home or self-care (01) | LOC: US 14:12 | PROVIDERS: ATTEND Nurse Practitioner Family | DX: M17.12 Unilateral primary osteoarthritis, left knee (principal); M79.662 Pain in left lower leg ==

== ENCOUNTER 2024-06-14 07:22 | Emergency (ER) | payer MEDICARE, OTHER ==
[~2024-06-14] VITALS: Ht 180.3 cm; Wt 88.5 kg
[~2024-06-14 07:22] MED LIST changes: +IMDUR SA30 MG PO; -IMDUR SA60 M1 PO
[2024-06-14 07:31] VITALS: BP 172/93
[2024-06-14] MEDS ORDERED: fentaNYL CITRATE/PF 50 MCG/ML SYRINGE IV ONE (07:35)
[2024-06-14] MEDS ORDERED: Ondansetron Hydrochloride 4 MG/2 ML VIAL IV ONE (07:35)
[2024-06-14] MEDS ORDERED: SODIUM CHLORIDE 0.9% 1,000 ML IV ONE ×3 (07:35→09:04)
[2024-06-14 08:00] LABS: BASO % 0.1 % (0.0-1.0); EOS # 0.1 10*3/uL (0.0-0.4); EOS % 1.5 % (1.0-4.0); HEMATOCRIT 40.7 % (42.0-52.0); MEAN CELL VOLUME 83.7 fl (80.0-94.0); MEAN CORPUSCULAR HGB 27.8 pg (27.0-31.0); MEAN CORPUSCULAR HGB CONC 33.2 g/dl (33.0-37.0); MEAN PLATELET VOLUME 10.1 fl (9.6-12.3); MONO # 0.8 10*3/uL (0.1-1.0); MONO % 10.1 % (3.0-9.0); NEUT # 5.9 10*3/uL (2.3-7.9); PLATELET COUNT AUTOMATED 162 10*3/uL (130-400); RED BLOOD COUNT 4.86 10*6/uL (4.50-5.90); RED CELL DISTRI WIDTH 12.8 % (0-14.5)
[2024-06-14] MEDS ORDERED: XARELTO20 M1 PO (08:13)
[2024-06-14] MEDS ORDERED: LEVOTHYROXINE100 MC1 PO (08:16)
[2024-06-14] MEDS ORDERED: VITAMIN B121000 MC3 PO (08:17)
[2024-06-14] MEDS ORDERED: ROPINIROLE HYD0.5 MG PO (08:19)
[2024-06-14] MEDS ORDERED: CHLORTHALIDONE50 MG PO (08:19)
[2024-06-14 08:21] LABS: POTASSIUM 3.6 mmol/L (3.4-5.1)
[2024-06-14] MEDS ORDERED: PROTONIX TR40 MG PO (08:21)
[2024-06-14] MEDS ORDERED: VITAMIN D3125 MCG PO (08:21)
[2024-06-14] MEDS ORDERED: FENOFIBRATE145 M1 PO (08:22)
[2024-06-14] MEDS ORDERED: CETIRIZINE10 MG PO (08:22)
[2024-06-14] MEDS ORDERED: Piperacillin Sodium/Tazobact 50 ML IV ONE (08:40)
[2024-06-14] MEDS ORDERED: AMOX-CLAV 875-1 EACH PO (08:52)
== END 2024-06-14 09:43 | disposition home or self-care (01) ==
LOC: ED 07:22
PROVIDERS: Emergency Medicine
DX: J02.0 Streptococcal pharyngitis (principal); Z20.822 Contact with and (suspected) exposure to COVID-19; M79.10 Myalgia, unspecified site; N17.9 Acute kidney failure, unspecified; E78.5 Hyperlipidemia, unspecified; E11.22 Type 2 diabetes mellitus with diabetic chronic kidney disease; I12.9 Hypertensive chronic kidney disease with stage 1 through stage 4 chronic kidney disease, or unspecified chronic kidney disease; N18.9 Chronic kidney disease, unspecified; I25.10 Atherosclerotic heart disease of native coronary artery without angina pectoris; J44.9 Chronic obstructive pulmonary disease, unspecified; K21.9 Gastro-esophageal reflux disease without esophagitis; F32.A Depression, unspecified; F17.200 Nicotine dependence, unspecified, uncomplicated; Z88.1 Allergy status to other antibiotic agents; Z88.5 Allergy status to narcotic agent; Z88.8 Allergy status to other drugs, medicaments and biological substances; Z98.890 Other specified postprocedural states

== ENCOUNTER 2025-02-23 20:49 | Emergency (ER) | payer OTHER ==
[~2025-02-23 20:49] MED LIST changes: +AMOX-CLAV 875-1 EACH PO; +ATORVASTATIN CA80 M1 PO; +AUGMENTIN 500500 M1 PO; +CETIRIZINE10 MG PO; +CHLORTHALIDONE50 MG PO; +FAMOTIDINE20 M1 PO; +FENOFIBRATE145 M1 PO; +HUMALOG100 UNIT/2 SC; +INSULIN LI100 UNIT/2 SQ; +LANTUS SOL100 UNIT/1 SC; +LEVOTHYROXINE100 MC1 PO; +METOPROLOL SUCC50 M1 PO; +POTASSIUM CHLO20 ME4 PO; +PROTONIX TR40 MG PO; +ROPINIROLE HYD0.5 MG PO; +VITAMIN B121000 MC3 PO; +VITAMIN D3125 MCG PO; +XARELTO20 M1 PO
[2025-02-23] MEDS ORDERED: Ondansetron Hydrochloride 4 MG/2 ML VIAL IV ONE (20:55)
[2025-02-23 21:06] LABS: BASO # 0.0 10*3/uL (0.0-0.1); BASO % 0.4 % (0.0-1.0); EOS # 0.2 10*3/uL (0.0-0.4); EOS % 3.1 % (1.0-4.0); MEAN CELL VOLUME 86.7 fl (80.0-94.0); MEAN CORPUSCULAR HGB 27.7 pg (27.0-31.0); MEAN PLATELET VOLUME 9.6 fl (9.6-12.3); MONO # 0.5 10*3/uL (0.1-1.0); MONO % 10.1 % (3.0-9.0); NEUT # 2.9 10*3/uL (2.3-7.9); NEUT % 54.7 % (47.0-73.0); NUCLEATED RED BLOOD CELL 0.0 % (0.0-0.0); NUCLEATED RED BLOOD CELL 0.0 10*3/uL (0.0-0.0); PLATELET COUNT AUTOMATED 224 10*3/uL (130-400); RED CELL DISTRI WIDTH 13.1 % (0-14.5)
[2025-02-23 21:32] LABS: BUN 32.0 mg/dl (9-23); SGPT/ALT 9.0 U/L (5-49)
[2025-02-24] MEDS ORDERED: SODIUM CHLORIDE 0.9% 1,000 ML IV ONE (00:45)
[2025-02-24] MEDS ORDERED: INSULIN REGULAR, HUMAN 1 UNIT/0.01 ML IV ONE (02:40)
[2025-02-24] MEDS ORDERED: SODIUM CHLORIDE 0.9% 500 ML IV ONE (02:40)
[2025-02-24 04:51] VITALS: BP 117/64
[2025-02-24] MEDS ORDERED: Ondansetron4 MG PO (06:27)
== END 2025-02-24 06:33 | disposition home or self-care (01) ==
LOC: ED 20:49
PROVIDERS: Internal Medicine
DX: B34.9 Viral infection, unspecified (principal); E11.65 Type 2 diabetes mellitus with hyperglycemia; I12.9 Hypertensive chronic kidney disease with stage 1 through stage 4 chronic kidney disease, or unspecified chronic kidney disease; E11.22 Type 2 diabetes mellitus with diabetic chronic kidney disease; N18.32 Chronic kidney disease, stage 3b; R29.810 Facial weakness; H53.8 Other visual disturbances; I25.10 Atherosclerotic heart disease of native coronary artery without angina pectoris; J44.9 Chronic obstructive pulmonary disease, unspecified; K21.9 Gastro-esophageal reflux disease without esophagitis; F32.A Depression, unspecified; F12.90 Cannabis use, unspecified, uncomplicated; Z88.5 Allergy status to narcotic agent; Z88.8 Allergy status to other drugs, medicaments and biological substances; Z98.890 Other specified postprocedural states; Z89.022 Acquired absence of left finger(s); Z87.891 Personal history of nicotine dependence

== ENCOUNTER 2025-02-27 22:34 | Inpatient (IN) | payer OTHER ==
[~2025-02-27] VITALS: Ht 180.3 cm; Wt 80.8 kg
[~2025-02-27 22:34] MED LIST changes: +Ondansetron4 MG PO
[2025-02-27 22:56] LABS: BASO # 0.0 10*3/uL (0.0-0.1); BASO % 0.4 % (0.0-1.0); EOS # 0.1 10*3/uL (0.0-0.4); EOS % 2.1 % (1.0-4.0); MEAN CELL VOLUME 86.4 fl (80.0-94.0); MEAN CORPUSCULAR HGB 27.9 pg (27.0-31.0); MEAN PLATELET VOLUME 9.6 fl (9.6-12.3); MONO # 0.7 10*3/uL (0.1-1.0); MONO % 14.1 % (3.0-9.0); NEUT # 3.2 10*3/uL (2.3-7.9); NEUT % 62.7 % (47.0-73.0); NUCLEATED RED BLOOD CELL 0.0 % (0.0-0.0); NUCLEATED RED BLOOD CELL 0.0 10*3/uL (0.0-0.0); PLATELET COUNT AUTOMATED 190 10*3/uL (130-400); RED CELL DISTRI WIDTH 13.1 % (0-14.5)
[2025-02-27 22:59] VITALS: BP 177/75
[2025-02-27 23:17] LABS: BUN 26.0 mg/dl (9-23)
[2025-02-27] MEDS ORDERED: HEPARIN SODIUM 250 ML IV SCH (23:35)
[2025-02-27] MEDS ORDERED: ASPIRIN, CHEWABLE 81 MG TAB PO ONE (23:35)
[2025-02-27] MEDS ORDERED: SIMVASTATIN40 MG PO (23:50)
[2025-02-28 00:21] LABS: ACT PARTIAL THROMBO TIME 30.1 SECONDS (20.0-32.1)
[2025-02-28 01:15] VITALS: BP 168/72
[2025-02-28] MEDS ORDERED: BISACODYL 10 MG SUPP R PRN (03:00)
[2025-02-28] MEDS ORDERED: ACETAMINOPHEN 650 MG SUPP R PRN (03:00)
[2025-02-28] MEDS ORDERED: ACETAMINOPHEN 325 MG TAB PO PRN (03:00)
[2025-02-28] MEDS ORDERED: BISACODYL 5 MG TAB PO PRN (03:00)
[2025-02-28] MEDS ORDERED: DEXTROSE 50% 25 GM/50 ML VIAL IV PRN (03:10)
[2025-02-28] MEDS ORDERED: HEPARIN SODIUM 250 ML IV SCH (03:10)
[2025-02-28 03:20] VITALS: BP 168/65
[2025-02-28 06:43] LABS: BASO # 0.0 10*3/uL (0.0-0.1); BASO % 0.3 % (0.0-1.0); EOS # 0.1 10*3/uL (0.0-0.4); EOS % 2.8 % (1.0-4.0); MEAN CELL VOLUME 87.4 fl (80.0-94.0); MEAN CORPUSCULAR HGB 28.0 pg (27.0-31.0); MEAN PLATELET VOLUME 9.5 fl (9.6-12.3); MONO # 0.5 10*3/uL (0.1-1.0); MONO % 13.2 % (3.0-9.0); NEUT # 2.2 10*3/uL (2.3-7.9); NEUT % 57.0 % (47.0-73.0); NUCLEATED RED BLOOD CELL 0.0 % (0.0-0.0); NUCLEATED RED BLOOD CELL 0.0 10*3/uL (0.0-0.0); PLATELET COUNT AUTOMATED 171 10*3/uL (130-400); RED CELL DISTRI WIDTH 13.2 % (0-14.5)
[2025-02-28] MEDS ORDERED: SODIUM CHLORIDE 0.9% 1,000 ML IV ONE (07:05)
[2025-02-28 07:11] LABS: BUN 25.0 mg/dl (9-23)
[2025-02-28] MEDS ORDERED: INSULIN LISPRO 1 UNIT/0.01 ML SQ SCH (07:30)
[2025-02-28 08:00] VITALS: BP 164/68
[2025-02-28] MEDS ORDERED: hydrALAZINE hydrochloride 50 MG TAB PO SCH (10:00)
[2025-02-28] MEDS ORDERED: METOPROLOL SUCCINATE XR 50 MG TAB PO SCH (10:00)
[2025-02-28] MEDS ORDERED: CHLORTHALIDONE 25 MG TAB PO SCH (10:00)
[2025-02-28] MEDS ORDERED: ASPIRIN ENTERIC COATED 81 MG TAB PO SCH (10:00)
[2025-02-28] MEDS ORDERED: ATORVASTATIN CALCIUM 80 MG TAB PO SCH (10:00)
[2025-02-28] MEDS ORDERED: FENOFIBRATE 145 MG TAB PO SCH (10:00)
[2025-02-28 12:00] VITALS: BP 168/63
[2025-02-28] MEDS ORDERED: Insulin Glargine, Recombinan 1 UNIT/0.01 ML SC SCH (22:00)
== END 2025-02-28 11:30 | disposition short-term general hospital (02) | DRG 281 ==
LOC: ED 22:34 → 5E 02-28 01:36 → EDHOLD 02-28 01:36 → 5E 02-28 02:57
PROVIDERS: Internal Medicine; Student in an Organized Health Care Education/Training Program; ADMIT Internal Medicine; ATTEND Internal Medicine
DX: I21.4 Non-ST elevation (NSTEMI) myocardial infarction (principal); N17.9 Acute kidney failure, unspecified; D64.9 Anemia, unspecified; I25.10 Atherosclerotic heart disease of native coronary artery without angina pectoris; E11.51 Type 2 diabetes mellitus with diabetic peripheral angiopathy without gangrene; I12.9 Hypertensive chronic kidney disease with stage 1 through stage 4 chronic kidney disease, or unspecified chronic kidney disease; E11.22 Type 2 diabetes mellitus with diabetic chronic kidney disease; K21.9 Gastro-esophageal reflux disease without esophagitis; E11.65 Type 2 diabetes mellitus with hyperglycemia; G47.33 Obstructive sleep apnea (adult) (pediatric); E78.2 Mixed hyperlipidemia; N18.32 Chronic kidney disease, stage 3b; F12.90 Cannabis use, unspecified, uncomplicated; I71.43 Infrarenal abdominal aortic aneurysm, without rupture; Z89.029 Acquired absence of unspecified finger(s); Z87.891 Personal history of nicotine dependence; Z82.49 Family history of ischemic heart disease and other diseases of the circulatory system; Z79.899 Other long term (current) drug therapy; Z79.4 Long term (current) use of insulin; Z86.73 Personal history of transient ischemic attack (TIA), and cerebral infarction without residual deficits

== ENCOUNTER 2025-06-25 13:47 | Observation (INO) | payer OTHER ==
[~2025-06-25] VITALS: Ht 180.3 cm; Wt 84.0 kg
[~2025-06-25 13:47] MED LIST changes: +SIMVASTATIN40 MG PO
[2025-06-25 13:55] VITALS: BP 141/67
[2025-06-25] MEDS ORDERED: IOHEXOL 350 MG/ML 100 ML VIAL IV ONE ×2 (14:25→14:37)
[2025-06-25] MEDS ORDERED: SODIUM CHLORIDE 0.9% 100 ML BAG IV ONE (14:25)
[2025-06-25] MEDS ORDERED: SODIUM CHLORIDE 0.9% 100 ML IV ONE (14:37)
[2025-06-25 14:51] LABS: BASO # 0.0 10*3/uL (0.0-0.1); BASO % 0.5 % (0.0-1.0); EOS # 0.1 10*3/uL (0.0-0.4); EOS % 1.3 % (1.0-4.0); MEAN CELL VOLUME 82.8 fl (80.0-94.0); MEAN CORPUSCULAR HGB 27.5 pg (27.0-31.0); MEAN PLATELET VOLUME 9.0 fl (9.6-12.3); MONO # 0.4 10*3/uL (0.1-1.0); MONO % 11.4 % (3.0-9.0); NEUT # 2.9 10*3/uL (2.3-7.9); NEUT % 75.7 % (47.0-73.0); NUCLEATED RED BLOOD CELL 0.0 % (0.0-0.0); NUCLEATED RED BLOOD CELL 0.0 10*3/uL (0.0-0.0); PLATELET COUNT AUTOMATED 179 10*3/uL (130-400); RED CELL DISTRI WIDTH 13.3 % (0-14.5)
[2025-06-25 15:03] LABS: ACT PARTIAL THROMBO TIME 28.4 SECONDS (20.0-32.1)
[2025-06-25 15:24] LABS: BUN 26.0 mg/dl (9-23); CPK 62.0 U/L (34-171)
[2025-06-25] MEDS ORDERED: ASPIRIN 325 MG ENTERIC COATED PO ONE (15:40)
[2025-06-25] MEDS ORDERED: NITROGLYCERIN 1 IN PACKET T ONE (15:55)
[2025-06-25] MEDS ORDERED: ACETAMINOPHEN 325 MG TAB PO PRN (17:55)
[2025-06-25] MEDS ORDERED: ACETAMINOPHEN 650 MG SUPP R PRN (17:55)
[2025-06-25] MEDS ORDERED: BISACODYL 5 MG TAB PO PRN (17:55)
[2025-06-25] MEDS ORDERED: BISACODYL 10 MG SUPP R PRN (17:55)
[2025-06-25] MEDS ORDERED: Ondansetron Hydrochloride 4 MG/2 ML VIAL IV PRN (17:55)
[2025-06-25 18:20] VITALS: BP 123/68
[2025-06-25] MEDS ORDERED: CILOSTAZOL100 MG PO (19:18)
[2025-06-25] MEDS ORDERED: DEXTROSE 50% 25 GM/50 ML VIAL IV PRN (19:20)
[2025-06-25] MEDS ORDERED: VITAMIN B121000 MC1 PO (19:20)
[2025-06-25] MEDS ORDERED: LEVOTHYROXINE125 MCG PO (19:21)
[2025-06-25] MEDS ORDERED: GOOD SENSE ACID20 MG PO (19:23)
[2025-06-25] MEDS ORDERED: PANTOPRAZOLE SO40 MG PO (19:24)
[2025-06-25 20:20] VITALS: BP 104/54
[2025-06-25] MEDS ORDERED: ATORVASTATIN CALCIUM 80 MG TAB PO SCH (22:00)
[2025-06-25] MEDS ORDERED: Insulin Glargine, Recombinan 1 UNIT/0.01 ML SC SCH ×2 (22:00)
[2025-06-25] MEDS ORDERED: INSULIN LISPRO 1 UNIT/0.01 ML SQ SCH (22:00)
[2025-06-25] MEDS ORDERED: hydrALAZINE hydrochloride 50 MG TAB PO SCH (22:00)
[2025-06-26] VITALS: BP 114/68
[2025-06-26 06:30] LABS: MEAN CELL VOLUME 82.2 fl (80.0-94.0); MEAN CORPUSCULAR HGB 27.4 pg (27.0-31.0); MEAN PLATELET VOLUME 9.6 fl (9.6-12.3); NUCLEATED RED BLOOD CELL 0.0 % (0.0-0.0); NUCLEATED RED BLOOD CELL 0.0 10*3/uL (0.0-0.0); PLATELET COUNT AUTOMATED 175 10*3/uL (130-400); RED CELL DISTRI WIDTH 13.6 % (0-14.5)
[2025-06-26 06:41] LABS: MANUAL DIFF REFLEX YES
[2025-06-26 06:45] VITALS: BP 111/58
[2025-06-26 07:27] LABS: BUN 27.0 mg/dl (9-23); FREE T4 1.45 ng/dl (0.89-1.76); LDL CHOLESTEROL 77.0 mg/dL (9-159); SGPT/ALT 27.0 U/L (5-49)
[2025-06-26 07:58] LABS: BASOPHILS 1 % (0-1); PLATELET SUFFICIENCY NORMAL (NORMAL)
[2025-06-26 08:00] VITALS: BP 129/63
[2025-06-26] MEDS ORDERED: FENOFIBRATE 145 MG TAB PO SCH (10:00)
[2025-06-26] MEDS ORDERED: CHLORTHALIDONE 25 MG TAB PO SCH (10:00)
[2025-06-26] MEDS ORDERED: METOPROLOL SUCCINATE XR 50 MG TAB PO SCH (10:00)
[2025-06-26] MEDS ORDERED: RIVAROXABAN 20 MG TAB PO SCH (10:00)
[2025-06-26] MEDS ORDERED: ASPIRIN, CHEWABLE 81 MG TAB PO SCH (10:00)
[2025-06-26 12:00] VITALS: BP 132/57
[2025-06-26] MEDS ORDERED: ISOSORBIDE MONONITRATE 30 MG TAB PO SCH (13:30)
[2025-06-26] MEDS ORDERED: Clopidogrel Hydrogen Sulfate 75 MG TAB PO SCH (13:30)
[2025-06-26] MEDS ORDERED: IMDUR SA30 MG PO (15:20)
[2025-06-26] MEDS ORDERED: PLAVIX75 M1 PO (15:20)
[2025-06-26] MEDS ORDERED: RIVAROXABAN 15 MG TAB PO SCH (18:00)
[2025-06-27] MEDS ORDERED: POTASSIUM CHLORIDE 20 MEQ TAB PO SCH (10:00)
== END 2025-06-26 18:34 | disposition home or self-care (01) ==
LOC: ED 13:47 → EDHOLD 17:50 → 5E 19:07
PROVIDERS: Emergency Medicine; Student in an Organized Health Care Education/Training Program; ADMIT Student in an Organized Health Care Education/Training Program; ATTEND Student in an Organized Health Care Education/Training Program
DX: G45.9 Transient cerebral ischemic attack, unspecified (principal); R07.89 Other chest pain; D72.819 Decreased white blood cell count, unspecified; K21.9 Gastro-esophageal reflux disease without esophagitis; I70.33 Atherosclerosis of unspecified type of bypass graft(s) of the right leg with ulceration; I10 Essential (primary) hypertension; E78.5 Hyperlipidemia, unspecified; E11.65 Type 2 diabetes mellitus with hyperglycemia; E11.9 Type 2 diabetes mellitus without complications; I25.10 Atherosclerotic heart disease of native coronary artery without angina pectoris; I12.9 Hypertensive chronic kidney disease with stage 1 through stage 4 chronic kidney disease, or unspecified chronic kidney disease; E11.22 Type 2 diabetes mellitus with diabetic chronic kidney disease; I50.32 Chronic diastolic (congestive) heart failure; N18.32 Chronic kidney disease, stage 3b; D63.1 Anemia in chronic kidney disease; Z79.899 Other long term (current) drug therapy; Z98.890 Other specified postprocedural states